=== PATIENT | female | born 1975 | race Caucasian/White ===

== ENCOUNTER 2019-04-20 13:22 | Emergency (ER) | payer MEDICARE, MEDICAID ==
[~2019-04-20] VITALS: Ht 177.8 cm; Wt 70.3 kg
[2019-04-20 14:15] LABS: Urine Bacteria FEW /hpf (None Seen); Urine Blood 2+ /uL (Negative); Urine Mucus FEW (None Seen); Urine Specific Gravity 1.022 (1.001-1.035); Urine WBC 481 /hpf (0 - 5)
[2019-04-20 14:45] VITALS: BP 108/62
[2019-04-20] MEDS ORDERED: cefTRIAXone W LIDOCAINE 1 GM IM IM ONE (15:30)
[2019-04-20] MEDS ORDERED: cefTRIAXone SOD 1,000 MG VL ONE (16:02)
== END 2019-04-20 16:19 | disposition home or self-care (01) ==
LOC: ER 13:22
DX: N12 Tubulo-interstitial nephritis, not specified as acute or chronic (principal); Z98.51 Tubal ligation status; Z88.8 Allergy status to other drugs, medicaments and biological substances
CPT/HCPCS: 74176; 81001; 87086; 87088; 87186; J0696